=== PATIENT | female | born 1990 | race Caucasian/White ===

== ENCOUNTER 2022-06-03 04:52 | Emergency (ER) | payer MEDICAID, SELFPAY ==
[2022-06-03 04:56] VITALS: BP 149/98; PULSE 95; RESP 18; TEMP 37.6; O2SAT 98; BMI 26.5
[2022-06-03 05:56] LABS: PCR FLU A Negative PCR FLU A (Negative); PCR FLU B Negative PCR FLU B (Negative); PCR RSV Negative PCR RSV (Negative)
[2022-06-03 06:02] LABS: SARS PCR* POSITIVE SARS-CoV-2 (Negative); Strep A DNA Probe* NOT DETECTED (Not Detectd)
--- NOTE | 2022-06-03 06:08 | ED.GENADULT ---
HPI - General Adult General Chief complaint: Unspecified Complaint, Adult Stated complaint: Sore throat, constricted breathing Time Seen by Provider: 06/03/22 04:56 Source: patient Limitations: no limitations History of Present Illness HPI narrative: 31-year-old female with 6-7 day history of sore throat. Initially improved after the 1st couple days and now has been worsening for the past 2 and half days. Sore throat is bilateral accompanied by mild cough. Feels like there is phlegm in her upper chest as well. No severe shortness of breath. Tried taking some ibuprofen about 8 hours ago with no significant improvement in her symptoms. Has not been regularly using Tylenol and ibuprofen. Did take some DayQuil as well with no improvement either. No history of asthma or chronic lung disease. She is incompletely COVID vaccinated. No known exposures to any illness. Past medical history is benign, denies major long-term health problems. Only home medication is NuvaRing. Social history reviewed, nonsmoker with no recent pertinent travel. ROS is notable for mild headache, generalized body aches, cough and sore throat as stated above. Otherwise she denies times 12 systems. Related Data Home Medications Medication Instructions Recorded Confirmed NuvaRing 06/03/22 Vicks DayQuil Cold-Flu Relief 06/03/22 ibuprofen .ROUTE 06/03/22 Allergies Allergy/AdvReac Type Severity Reaction Status Date / Time No Known Drug Allergies [facility] Verified 06/03/22 04:59 [facility] Social History Smoking Status: Former smoker How often do you have a drink containing alcohol: 2-3 times a week AUDIT-C Alcohol total score: 3 Non-prescribed substance use: marijuana (any form) Exam Const: Vital Signs, click to edit/add: Vital Signs - 24 hr 06/03/22 04:56 Temperature 99.7 F H Pulse Rate [Left P ulse Oximeter] 95 Respiratory Rate 18 Blood Pressure [Ri ght Upper Arm] 149/98 H Pulse Oximetry 98 Oxygen Delivery Me thod Room Air Documenting provider has reviewed patient's vital signs: yes Common normals: no apparent distress General appearance: cooperative HENMT: Common normals: normocephalic Head and scalp: normocephalic Mouth: oral and palatal mucosa normal Throat: posterior oropharynx normal Eye: Common normals: conjunctivae normal Conjunctiva: conjunctiva(e) normal Neck & C-Spine: Common normals: full ROM and no lymphadenopathy Resp: Common normals: normal respiratory effort, no use of accessory muscles and clear to auscultation bilaterally Effort & inspection: able to speak in complete sentences Auscultation: clear to auscultation bilaterally Cardio: Common normals: regular rate, regular rhythm, S1 normal heart sound, S2 normal heart sound and no murmurs Rate: regular rate Rhythm: regular rhythm Heart sounds: S1 normal and S2 normal Psych: Common normals: thought process normal, cooperative and affect normal Thought process: normal thought process Insight: insight good Judgement: judgment good Skin: Common normals: no rashes or lesions noted General skin exam: no rashes or lesions noted Course Vital Signs Vital signs: Initial Vital Signs Temperature 99.7 F H 06/03/22 04:56 Temperature Source Temporal Artery Scan 06/03/22 04:56 Pulse Rate 95 06/03/22 04:56 Respiratory Rate 18 06/03/22 04:56 Blood Pressure 149/98 H 06/03/22 04:56 Blood Pressure Mean 115 06/03/22 04:56 Blood Pressure Position Sitting 06/03/22 04:56 Pulse Oximetry 98 06/03/22 04:56 Oxygen Delivery Method 06/03/22 04:56 Vital Signs Temperature 99.7 F H 06/03/22 04:56 Pulse Rate 95 06/03/22 04:56 Respiratory Rate 18 06/03/22 04:56 Blood Pressure 149/98 H 06/03/22 04:56 Pulse Oximetry 98 06/03/22 04:56 Oxygen Delivery Method 06/03/22 04:56 Temperature 99.7 F H 06/03/22 04:56 Pulse Rate 95 06/03/22 04:56 Respiratory Rate 18 06/03/22 04:56 Blood Pressure 149/98 H 06/03/22 04:56 Pulse Oximetry 98 06/03/22 04:56 Oxygen Delivery Method 06/03/22 04:56 Medical Decision Making MDM Narrative Medical decision making narrative: No signs of significant hypoxia tachypnea or other impairment. Swabs collected. COVID positive, reviewed with patient. At this duration of illness, unlikely to benefit from antiviral medications, these were discussed, risks and benefits weighed. Patient will receive Toradol p.o. and is instructed on home management with salt water gargles, topical cares, symptomatic care, Tylenol, ibuprofen and alarm symptoms that would warrant ED presentation. She verbalizes understanding and agreement. Lab Data Labs: Lab Results 06/03/22 06/03/22 Range/Units 05:10 05:10 SARS-CoV-2 (PCR) POSITIVE SARS-CoV-2 A (Negative) Influenza Type A (PCR) Negative PCR FLU A (Negative) Influenza Type B (PCR) Negative PCR FLU B (Negative) RSV (PCR) Negative PCR RSV (Negative) Group A Strep DNA NOT DETECTED (Not Detectd) Discharge Plan Discharge Clinical Impression: COVID Patient Disposition: Home w/ Parent or Adult Condition: Stable Instructions: COVID-19 (Coronavirus Disease 2019) (ED) Additional Instructions: As we discussed, your swab is positive for COVID. Strep test are negative. This virus often does cause sore throat and upper airway congestion. We do not see any signs of significant complications. As we also discussed, you are likely on day 627 of illness. There are medications available which can shorten the intensity and duration of the virus, but they are really only helpful if given in the 1st 5 days. I do not think he would benefit from these. They do have significant side effects as well. Treat symptomatically with medications that make you feel better. I recommend Tylenol 1000 mg every 6 hours, alternating in with ibuprofen or Aleve. Ibuprofen would be 600 mg every 6 hours. Aleve would be 2 Aleve tablets every 8 hours. As we also discussed, the salt water gargles can be helpful. The recipe is 8 oz of water with 1/2 tsp of salt. This is quite a bit more than most are expecting. Gargle with that as long as possible, at least 20-30 seconds and spit. The high salt concentration will decrease swelling and inflammation. My other recommendation is the miracle throat gargle that we discussed. This is 10 mL of tap water combined with 30 mL of rosario Maalox and 10 mL of Children's liquid Benadryl. Gargle with these and swallow. Try not to eat or drink anything for 30 minutes after. This will also help significantly with sore throat. Your oxygen levels are great, your lungs sound clear. If you start having any severe shortness of breath, seek re-evaluation. Activity Level: Activity as Tolerated Discharge Diet: Regular Prescriptions: No Action NuvaRing ibuprofen .ROUTE Vicks DayQuil Cold-Flu Relief Follow Up/Referrals: Dakota Huynh MS, LAT, ATC [Primary Care Provider] - Stand Alone Forms: [employer] Info Instructions
[2022-06-03] MEDS: KETOROLAC 10 MG TABLET PO (06:15)
--- NOTE | 2022-06-03 06:23 | ED_ITS ---
HPI - General Adult General Chief complaint: Unspecified Complaint, Adult Stated complaint: Sore throat, constricted breathing Time Seen by Provider: 06/03/22 04:56 Source: patient Limitations: no limitations History of Present Illness HPI narrative: 31-year-old female with no history of asthma or other significant pulmonary disease presents with a 6-7 day history of sore throat, progressing into cough and burning in the upper chest. No severe shortness of breath, Related Data Home Medications Medication Instructions Recorded Confirmed NuvaRing 06/03/22 Vicks DayQuil Cold-Flu Relief 06/03/22 ibuprofen .ROUTE 06/03/22 Allergies Allergy/AdvReac Type Severity Reaction Status Date / Time No Known Drug Allergies Allergy Verified 06/03/22 04:59 PFSH PFSH Social History Smoking Status: Former smoker How often do you have a drink containing alcohol: 2-3 times a week AUDIT-C Alcohol total score: 3 Non-prescribed substance use: marijuana (any form) Exam Const: Vital Signs, click to edit/add: Vital Signs - 24 hr 06/03/22 04:56 Temperature 99.7 F H Pulse Rate [Left P ulse Oximeter] 95 Respiratory Rate 18 Blood Pressure [Ri ght Upper Arm] 149/98 H Pulse Oximetry 98 Oxygen Delivery Me thod Room Air Course Vital Signs Vital signs: Initial Vital Signs Temperature 99.7 F H 06/03/22 04:56 Temperature Source Temporal Artery Scan 06/03/22 04:56 Pulse Rate 95 06/03/22 04:56 Respiratory Rate 18 06/03/22 04:56 Blood Pressure 149/98 H 06/03/22 04:56 Blood Pressure Mean 115 06/03/22 04:56 Blood Pressure Position Sitting 06/03/22 04:56 Pulse Oximetry 98 06/03/22 04:56 Oxygen Delivery Method 06/03/22 04:56 Vital Signs Temperature 99.7 F H 06/03/22 04:56 Pulse Rate 95 06/03/22 04:56 Respiratory Rate 18 06/03/22 04:56 Blood Pressure 149/98 H 06/03/22 04:56 Pulse Oximetry 98 06/03/22 04:56 Oxygen Delivery Method 06/03/22 04:56 Temperature 99.7 F H 06/03/22 04:56 Pulse Rate 95 06/03/22 04:56 Respiratory Rate 18 06/03/22 04:56 Blood Pressure 149/98 H 06/03/22 04:56 Pulse Oximetry 98 06/03/22 04:56 Oxygen Delivery Method 06/03/22 04:56 Medical Decision Making Lab Data Labs: Lab Results 06/03/22 06/03/22 Range/Units 05:10 05:10 SARS-CoV-2 (PCR) POSITIVE SARS-CoV-2 A (Negative) Influenza Type A (PCR) Negative PCR FLU A (Negative) Influenza Type B (PCR) Negative PCR FLU B (Negative) RSV (PCR) Negative PCR RSV (Negative) Group A Strep DNA NOT DETECTED (Not Detectd) Discharge Plan Discharge Clinical Impression: COVID Patient Disposition: Home w/ Parent or Adult Condition: Stable Instructions: COVID-19 (Coronavirus Disease 2019) (ED) Additional Instructions: As we discussed, your swab is positive for COVID. Strep test are negative. This virus often does cause sore throat and upper airway congestion. We do not see any signs of significant complications. As we also discussed, you are likely on day 627 of illness. There are medications available which can shorten the intensity and duration of the virus, but they are really only helpful if given in the 1st 5 days. I do not think he would benefit from these. They do have significant side effects as well. Treat symptomatically with medications that make you feel better. I recommend Tylenol 1000 mg every 6 hours, alternating in with ibuprofen or Aleve. Ibuprofen would be 600 mg every 6 hours. Aleve would be 2 Aleve tablets every 8 hours. As we also discussed, the salt water gargles can be helpful. The recipe is 8 oz of water with 1/2 tsp of salt. This is quite a bit more than most are expecting. Gargle with that as long as possible, at least 20-30 seconds and spit. The high salt concentration will decrease swelling and inflammation. My other recommendation is the miracle throat gargle that we discussed. This is 10 mL of tap water combined with 30 mL of rosario Maalox and 10 mL of Children's liquid Benadryl. Gargle with these and swallow. Try not to eat or drink anything for 30 minutes after. This will also help significantly with sore throat. Your oxygen levels are great, your lungs sound clear. If you start having any severe shortness of breath, seek re-evaluation. Activity Level: Activity as Tolerated Discharge Diet: Regular Prescriptions: No Action NuvaRing ibuprofen .ROUTE Vicks DayQuil Cold-Flu Relief Follow Up/Referrals: Dakota Huynh MS, LAT, ATC [[employer]] - Stand Alone Forms: [employer] Info Instructions
== END 2022-06-03 06:26 | disposition home or self-care (01) ==
LOC: ED 06:18
PROVIDERS: Emergency Provider Family Medicine
DX: U07.1 COVID-19 (principal)
CPT/HCPCS: 87502; 87634; 87635; 87651; 99283; A9270

== ENCOUNTER 2023-04-21 09:07 | Emergency (ER) | payer MEDICAID, SELFPAY ==
[2023-04-21 09:20] VITALS: BP 137/91; PULSE 63; RESP 18; TEMP 36.4; O2SAT 100; BMI 23.6
--- NOTE | 2023-04-21 10:02 | ED_ITS ---
HPI - General Adult General Date Seen: 04/21/23 Chief complaint: Neck Injury/Pain Stated complaint: Stiff neck Time Seen by Provider: 04/21/23 09:35 History of Present Illness HPI narrative: This is a 32-year-old female presenting to the ER this morning for evaluation of neck stiffness. She is generally healthy. No long-term medications other than control. She notes that she has had symptoms of pain that started in the back of her neck affecting both sides when she woke up the morning about 5 days ago, on Saturday. It has been getting a little bit worse every day since then and is now centered much more in the right cervical paraspinous muscles and the right trapezius and into the top of the right shoulder. The pain does not radiate down her arm. No associated numbness or tingling or weakness down the arm. She has no known injury. No fall. 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 She was apparently throwing darts on the evening prior to the onset of her pain. A no known t rauma. No recent falls. No anterior neck pain. No sore throat. No trouble swallowing. No fever or chills. No pain in her mid or low back. She has been trying to take ibuprofen as much as 800 mg per dose with only partial improvement. Her neck feels uncomfortable and when she tries to turn it to the right or left she gets a lot of pain in her right shoulder. No pain down into her mid scapular back. No pain down the arm. Related Data Home Medications Medication Instructions Recorded Confirmed NuvaRing 06/03/22 Vicks DayQuil Cold-Flu Relief 06/03/22 ibuprofen .ROUTE 06/03/22 Previous Rx's Medication Instructions Recorded cyclobenzaprine 10 mg tablet 10 mg PO TID PRN muscle spasm #14 04/21/23 tabs Allergies Allergy/AdvReac Type Severity Reaction Status Date / Time No Known Drug Allergies Allergy Verified 06/03/22 04:59 PFSH PFS Social History Smoking Status: Former smoker How often do you have a drink containing alcohol: 2-3 times a week AUDIT-C Alcohol total score: 3 Non-prescribed substance use: marijuana (any form) Exam Narrative: Exam Narrative: Constitutional: Appears well-developed and well-nourished. Alert. Conversant. Non toxic. HENT: Head: Atraumatic. Nose: Nose normal. Mouth/Throat: Oral mucosa is clear and moist. no trismus. Pharynx normal. Tonsils symmetric. No tonsillar enlargement, erythema, or exudate. Eyes: Conjunctivae normal. EOM normal. Pupils equal, round, and reactive to light. No scleral icterus. Neck: Normal range of motion but notes pain with right and leftward lateral rotation. Normal flexion and extension.. A anterior Neck supple. No tracheal deviation present. No pharyngitis. No cervical lymphadenopathy. She is mildly tender to palpation over the right cervical paraspinous muscles and right trapezius ridge. There is a slightly scattered erythematous, nonraised rash on the right trapezius ridge. This may actually be related to a recent cold pack. There is no vesicles to suggest shingles.. No warmth to suggest a cellulitis there. He Cardiovascular: Normal rate, regular rhythm. No gallop. No friction rub. No murmur heard. Symmetric radial artery pulses Pulmonary/Chest: Effort normal. No stridor. No respiratory distress. No wheezes. No rales. No rhonchi . No tenderness. Abdominal: Soft. Bowel sounds normal. No distension. No mass. No tenderness. No rebound. No guarding. Musculoskeletal: He no posterior midline tenderness over the cervical or thoracic spines. No step-offs. The RUE: Normal range of motion in her shoulder, elbow, wrist.. No tenderness. No deformity LUE: Normal range of motion. No tenderness. No deformity RLE: Normal range of motion. No edema. No tenderness. No deformity LLE: Normal range of motion. No edema. No tenderness. No deformity Lymph: No cervical adenopathy. Neurological: Alert and oriented to person, place, and time. Normal strength. CN II-VII intact. No sensory deficit. GCS eye subscore is 4. GCS verbal subscore is 5. GCS motor subscore is 6. Normal coordination Mental status normal. Attention normal. Alert and oriented x3. GCS 15. Memory normal. Speech fluent. Cognition normal. Cranial Nerves intact II-XII except I did not formally test gag or visual acuity. EOMI. Palate elevates symmetrically and tongue protrudes in the midline. Strength: 5/5 trapezius on the right and left 5/5 deltoid on the right and left 5/5 biceps on the right and left 5/5 triceps on the right and left 5/5 cheese tester on the right and left 5/5 thumb opposition on the right and le ft 5/5 finger abduction on the right and le ft 5/5 hip flexors (L3) on the right and le ft 5/5 quadriceps (L4) on the right and lef t 5/5 tibialis anterior on the right and l eft 5/5 EHL (L5) on the right and left 5/5 gastrocnemius (S1) on the right and left 5/5 hamstring on the right and left Sensation intact to light touch in both upper extremities (C4-T1) Sensation intact to light touch in Both lower extremities coordination normal. Gait normal. Skin: Skin is warm and dry. No rash noted. No pallor. Normal capillary refill. Psychiatric: Normal mood. Normal affect. A very polite Const: Vital Signs, click to edit/add: Vital Signs - 24 hr 04/21/23 09:20 Temperature 97.6 F Pulse Rate [Right Pulse Oximeter] 63 Respiratory Rate 18 Blood Pressure [Ri ght Upper Arm] 137/91 H Pulse Oximetry 100 Oxygen Delivery Me thod Room Air Course Vital Signs Vital signs: Initial Vital Signs Temperature 97.6 F 04/21/23 09:20 Temperature Source Temporal Artery Scan 04/21/23 09:20 Pulse Rate 63 04/21/23 09:20 Respiratory Rate 18 04/21/23 09:20 Blood Pressure 137/91 H 04/21/23 09:20 Blood Pressure Mean 106 H 04/21/23 09:20 Blood Pressure Position Sitting 04/21/23 09:20 Pulse Oximetry 100 04/21/23 09:20 Oxygen Delivery Method Room Air 04/21/23 09:20 Vital Signs Temperature 97.6 F 04/21/23 09:20 Pulse Rate 63 04/21/23 09:20 Respiratory Rate 18 04/21/23 09:20 Blood Pressure 137/91 H 04/21/23 09:20 Pulse Oximetry 100 04/21/23 09:20 Oxygen Delivery Method Room Air 04/21/23 09:20 Temperature 97.6 F 04/21/23 09:20 Pulse Rate 63 04/21/23 09:20 Respiratory Rate 18 04/21/23 09:20 Blood Pressure 137/91 H 04/21/23 09:20 Pulse Oximetry 100 04/21/23 09:20 Oxygen Delivery Method Room Air 04/21/23 09:20 Medical Decision Making MDM Narrative Medical decision making narrative: This is a very pleasant 32-year-old female presenting to the ER today for evaluation of a 5 day history of posterior neck pain now centered mostly in the right cervical paraspinous muscles and radiating into the top of the right shoulder. Differential would include (most likely) muscular skeletal pain and torticollis. She has already been treating with NSAIDs. Recommend that we continue that. Also will add Flexeril for additional pain relief. Discussed work restrictions so she can avoid re-injury. Differential would also include cervical disc radiculopathy. However this point I do not think she needs emergent C-spine MRI in the absence of any clear focal neurologic deficits or any progressive weakness. Discussed with the patient that if she fails to respond to conservative therapy and symptoms persist MR imaging would be indicated. She agrees. Differential would also include infectious pathology such as deep space neck abscess, he pharyngitis, adenopathy but these are not detected on exam. At this point I do not think she needs strep testing, lab testing, CT soft tissue. The no evidence for shingles or cellulitis. She does have a somewhat blotchy red indra on her shoulder which I think corresponds to recent ice pack usage. Prescription for Flexeril 10 mg t.i.d. p.r.n. provided. Reviewed sedation precautions. Questions answered. Plan for follow-up within 3 days if not improving, sooner if worse. Discharge Plan Discharge Clinical Impression: Neck pain Patient Disposition: Home, Self-Care Condition: Stable Instructions: Acute Neck Pain (ED) Additional Instructions: As we discussed, please continue with ice packs or warm packs. Use ibuprofen 600 mg every 6 hours if needed for pain. If you need additional pain relief between doses of ibuprofen, take acetaminophen (Tylenol) 1000 mg per dose up to every 6 hours if needed. Use the muscle relaxer for additional pain relief. Be careful with muscle relaxers because it can cause drowsiness, and dizziness. Avoid lifting objects more than 5 lb or performing activities that require you to lift objects above your head or twist her neck for the next 2-4 days, until your neck is healed. Prescriptions: New cyclobenzaprine 10 mg tablet 10 mg PO TID PRN (Reason: muscle spasm) Qty: 14 0RF No Action NuvaRing ibuprofen .ROUTE Vicks DayQuil Cold-Flu Relief Follow Up/Referrals: Provider,Not a Local [Primary Care Provider] - Stand Alone Forms: [employer] Info Instructions
== END 2023-04-21 10:41 | disposition home or self-care (01) ==
LOC: ED 10:27
PROVIDERS: Emergency Provider Emergency Medicine
DX: M54.2 Cervicalgia (principal)
CPT/HCPCS: 99282; 99283; 99284

== ENCOUNTER 2023-08-20 18:30 | Outpatient (CLI) | payer BC, MEDICAID, SELFPAY | END 2023-08-20 18:31 | disposition home or self-care (01) | PROVIDERS: Visit Provider Registered Nurse | DX: Z01.419 Encounter for gynecological examination (general) (routine) without abnormal findings (principal); Z13.1 Encounter for screening for diabetes mellitus; K21.9 Gastro-esophageal reflux disease without esophagitis; Z13.6 Encounter for screening for cardiovascular disorders; Z13.220 Encounter for screening for lipoid disorders | CPT/HCPCS: 80061; 82947 ==